=== PATIENT | male | born 1990 | race Caucasian/White ===

== ENCOUNTER 2017-04-05 05:48 | Day surgery (SDC) | payer OTHER ==
[~2017-04-05] VITALS: Ht 185.4 cm; Wt 81.6 kg
[~2017-04-05 05:48] MED LIST: AUGM875T28 PO; IBUP-1114 PO; NORC1TAB4 PO; PROAAER10 INH
[2017-04-05] MEDS ORDERED: ROPIvacaine 0.5% 30 ML INJECTION (J2795) ONE (05:49)
[2017-04-05] MEDS ORDERED: dexameTHASONE 10 MG/1 ML VIAL PRES.FREE (J1100) ONE (05:49)
[2017-04-05] MEDS ORDERED: LR 1,000 ML IV ONE (06:00)
[2017-04-05] MEDS ORDERED: MIDAZOLAM INJ 2 MG/2 ML VIAL (J2250) As Ordered ONE ×2 (06:56→07:09)
[2017-04-05] MEDS ORDERED: fentaNYL 100 MCG/2 ML INJECTION (J3010) As Ordered ONE (06:56)
[2017-04-05] MEDS ORDERED: ceFAZolin 1GM INJ (J0690) As Ordered ONE (07:20)
[2017-04-05] MEDS ORDERED: MIDAZOLAM INJ 2 MG/2 ML VIAL (J2250) IV ONE (07:30)
[2017-04-05] MEDS ORDERED: fentaNYL 100 MCG/2 ML INJECTION (J3010) IV ONE (07:30)
[2017-04-05] MEDS ORDERED: ceFAZolin SOD 1 GM in D5W MINI-BAG PLUS 50 ML IV ONE (07:30)
[2017-04-05] MEDS ORDERED: PROPOFOL 200 MG/20 ML VIAL As Ordered ONE (08:25)
[2017-04-05] MEDS ORDERED: LIDOCAINE 2% INJ 100 MG/5 ML SDV (FOR ANES.) As Ordered ONE (08:25)
[2017-04-05] MEDS ORDERED: ASPI325T24 PO (09:58)
[2017-04-05] MEDS ORDERED: NORCO, ANEXSIA 5/325MG TABLET (HYDROcodone/ACETAMINOPHEN) PO PRN (10:00)
[2017-04-05] MEDS ORDERED: LR 1,000 ML IV SCH (10:00)
[2017-04-05] MEDS ORDERED: ONDANSETRON 4MG/2ML VIAL (J2405) IV PRN (10:00)
[2017-04-05] MEDS ORDERED: fentaNYL 100 MCG/2 ML INJECTION (J3010) IV PRN (10:00)
[2017-04-05] MEDS ORDERED: PERCOCET PO (10:02)
[2017-04-05 14:50] VITALS: BP 137/71
--- NOTE | 2017-04-06 20:56 | RO ---
DATE OF PROCEDURE: 04/05/2017 PREOPERATIVE DIAGNOSIS: Left Achilles tendon rupture. POSTOPERATIVE DIAGNOSIS: Left Achilles tendon rupture. PROCEDURE: Left Achilles tendon repair. SURGEON: Avelina Tomas MD SEAM CLOSER: None ANESTHESIA: Spinal with popliteal block. ESTIMATED BLOOD LOSS: Minimal. IMPLANTS: Four #2 FiberWire sutures. COMPLICATIONS: None. CONDITION: Stable to recoveru. IMPLANTS: Four #2 FiberWire Sutures. INDICATIONS: Mr. Ingram is a 27-year-old male who was playing softball when he ruptured his Achilles tendon. The patient was seen in the office preoperatively , where options for treatment, including conservative management, were discussed with the patient in detail. The patient elected to proceed with surgical management of his Achilles tendon rupture. Risks and benefits including infection, wound healing issues, deep venous thrombosis (DVT), pulmonary embolism (PE), infection were all discussed with the patient in detail. The patient understands these risks and wishes to proceed with surgery. DESCRIPTION OF PROCEDURE: The patient was met in the preoperative holding area where his left lower extremity was marked as the correct operative site. Informed consent was reviewed. He then underwent a popliteal block by the anesthesiologist. Following this, he was taken to the operating room theater. At this point, spinal anesthetic was given by anesthesia. A well-padded tourniquet was placed on the left thigh. The patient was then placed in prone position on the operating room table. All of his bony prominences were well padded. Both legs were prepped out, and sterile drapes were applied. An official time-out was held where the correct patient and operative site were once again confirmed. The patient received antibiotics prior to incision. The leg was exsanguinated and tourniquet was inflated to 250mmHg. A longitudinal incision was made just medial to the midline in the area of the palpable defect. Careful dissection was carried out through the skin and subcutaneous tissues. Care was taken not to create subcutaneous flaps. The peritenon was exposed, and sharp dissection through the peritenon was performed to expose the ruptured Achilles tendon. All dissection remained at this point within the Achilles tendon sheath itself. Complete rupture of the Achilles tendon was noted. The plantaris tendon was noted to be intact. An Allis clamp was used to gently mobilize the proximal remnant. A finger was used to release any early adhesions. Gentle traction on the remnant allowed for exposure of the healthier tendon more proximally. The sural nerve was identified laterally, and care was taken to protect it throughout the case. At this point, a #2 FiberWire was passed through the proximal aspect of the tendon in a locking Krackow stitch. The distal aspect of the tendon was then exposed. Again, care was taken to protect the sural nerve. Similarly, a #2 FiberWire was passed in a locking Krackow stitch through the distal aspect of the tendon. The FiberWire sutures were then tied down with care to approximate similar tension to the contralateral side. At this point, a #2 FiberWire suture was placed through the proximal Achilles tendon remnant. A Peridot weave was created. A second #2 FiberWire suture was placed in the distal remnant and, similarly, a Cherelle weave was again created. With the ankle in proper equinus, the Cherelle weave was then tied down under appropriate tension. Again, tension was compared to the contralateral side and found to be adequate. The Figueroa test was now grossly negative. The wound at this point was grossly irrigated with copious quantities of normal saline. Closure was then performed, reapproximating the peritenon with #3-0 Vicryl. Following this, the subcutaneous tissues were closed using #3-0 Vicryl and the skin was closed using #3-0 nylon. The wound was dressed with Adaptic, sterile dressings, and sterile Webril. The patient was placed into a well-padded splint in equinus position. He was transferred into the recovery room in stable condition. POSTOPERATIVE PLAN: The patient will be nonweightbearing in his splint on the operative side. He will keep his extremity elevated 80% of the day to work on wound healing. He will followup in 14 days for suture removal. He will overall be nonweightbearing for 4 weeks. He will take aspirin 325 mg by mouth twice a day starting tonight for DVT prophylaxis. KERA
== END 2017-04-05 14:58 | disposition home or self-care (01) ==
LOC: M SDC 05:48
PROVIDERS: ATTEND Orthopaedic Surgery
DX: S86.012A Strain of left Achilles tendon, initial encounter (principal); Y93.64 Activity, baseball; Y92.89 Other specified places as the place of occurrence of the external cause; Y99.8 Other external cause status; X58.XXXA Exposure to other specified factors, initial encounter; J45.909 Unspecified asthma, uncomplicated
CPT/HCPCS: 27650; 64450; J0690; J1100; J2250; J2795; J3010

== ENCOUNTER 2020-08-10 01:50 | Emergency (ER) | payer OTHER, BC ==
[~2020-08-10] VITALS: Ht 185.4 cm; Wt 81.8 kg
[~2020-08-10 01:50] MED LIST changes: +ASPI-255 PO; -NORC1TAB4 PO; +NORC1TAB7 PO; +PERCOCET PO
[2020-08-10 02:12] LABS: ABG BASE EXCESS -4.1 (-2.0-2.0); ABG HCO3 20.5 MEQ/L (22.0-26.0); ABG O2 SATURATION 98.7 % (95.0-99.0); ABG PARTIAL PRESSURE CO2 36.1 mmHg (35.0-45.0); ABG PARTIAL PRESSURE O2 134.8 mmHg (75.0-100.0); ABG STANDARD HCO3 21.1 MEQ/L (22.0-26.0); ABG TOTAL CO2 21.6 MEQ/L (22.0-29.0); ABG pH (ARTERIAL) 7.372 UNITS (7.350-7.450)
[2020-08-10 02:17] VITALS: O2SAT 100
[2020-08-10 02:29] LABS: BASO % 0.7 % (0.0-1.0); EOS # 0.4 10^3/uL (0.0-0.5); EOS % 6.5 % (0.0-3.0); HEMATOCRIT 40.4 % (42.0-52.0); LYMPH # 2.1 10^3/uL (1.5-5.0); LYMPH % 36.5 % (24.0-44.0); MEAN CORPUSCULAR HGB CONC 32.2 g/dl (32.0-36.5); MEAN CORPUSCULAR VOLUME 93.1 fl (80.0-96.0); MONO # 0.6 10^3/uL (0.0-0.8); MONO % 10.2 % (0.0-5.0); NEUTROPHILS # 2.6 10^3/uL (1.5-8.5); NEUTROPHILS % 45.9 % (36.0-66.0); PLATELET COUNT, AUTOMATED 219 10^3/uL (150-450); RED BLOOD COUNT 4.34 10^6/uL (4.30-6.10); WHITE BLOOD COUNT 5.7 10^3/uL (4.0-10.0)
[2020-08-10] MEDS ORDERED: IPRATROPIUM 0.5MG/ALBUTEROL 2.5MG INH SOL UD 3ML (DUONEB) As Ordered ONE (02:34)
[2020-08-10] MEDS ORDERED: IPRATROPIUM 0.5MG/ALBUTEROL 2.5MG INH SOL UD 3ML (DUONEB) NEB ONE (02:45)
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
[2020-08-10 03:12] LABS: ALT/SGPT 17 U/L (12-78); BILIRUBIN,DIRECT 0.2 MG/DL (0.0-0.2); BILIRUBIN,TOTAL 0.5 MG/DL (0.2-1.0); BLOOD UREA NITROGEN 23 MG/DL (7-18); CALCIUM LEVEL 8.8 MG/DL (8.5-10.1); CARBON DIOXIDE LEVEL 24 MEQ/L (21-32); CHLORIDE LEVEL 108 MEQ/L (98-107); CK-MB VALUE MASS 1.7 NG/ML (<3.6); CPK CREATINE PHOSPHOKINASE 166 U/L (39-308); CREATININE FOR GFR 0.82 MG/DL (0.70-1.30); FREE T4 1.14 NG/DL (0.76-1.46); GLOMERULAR FILTRATION RATE > 60.0 (>60); GLUCOSE, FASTING 88 MG/DL (70-100); MB/CK RELATIVE INDEX 1.02 (< OR =4); POTASSIUM SERUM 3.9 MEQ/L (3.5-5.1); SODIUM LEVEL 139 MEQ/L (136-145); THYROID STIMULATING HORMONE 0.924 uIU/ML (0.358-3.740); TROPONIN I < 0.02 NG/ML (< 0.10)
[2020-08-10] MEDS ORDERED: VENTAER INH (03:57)
[2020-08-10 05:15] VITALS: BP 145/88
--- NOTE | 2020-08-11 07:58 | ECGEPIP ---
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
== END 2020-08-10 05:38 | disposition home or self-care (01) ==
LOC: M ED 01:51
DX: J70.5 Respiratory conditions due to smoke inhalation (principal); I44.0 Atrioventricular block, first degree; X08.8XXA Exposure to other specified smoke, fire and flames, initial encounter; Y92.89 Other specified places as the place of occurrence of the external cause; Y93.9 Activity, unspecified; Y99.0 Civilian activity done for income or pay; J45.909 Unspecified asthma, uncomplicated

== ENCOUNTER 2022-06-16 00:13 | Emergency (ER) | payer BC, OTHER ==
[~2022-06-16] VITALS: Ht 185.4 cm; Wt 81.8 kg
[~2022-06-16 00:13] MED LIST changes: +VENTAER INH
[2022-06-16 02:21] VITALS: BP 138/88
== END 2022-06-16 02:22 | disposition home or self-care (01) ==
LOC: M ED 00:13
DX: S62.667A Nondisplaced fracture of distal phalanx of left little finger, initial encounter for closed fracture (principal); W50.0XXA Accidental hit or strike by another person, initial encounter; Y99.0 Civilian activity done for income or pay; J45.909 Unspecified asthma, uncomplicated; Z79.51 Long term (current) use of inhaled steroids

== ENCOUNTER → 2022-07-14 | Outpatient (CLI) | payer OTHER | LOC: M SOG 13:44 | PROVIDERS: ATTEND Physician Assistant | DX: M79.645 Pain in left finger(s) (principal); S62.667D Nondisplaced fracture of distal phalanx of left little finger, subsequent encounter for fracture with routine healing; W50.0XXD Accidental hit or strike by another person, subsequent encounter; Y99.0 Civilian activity done for income or pay ==

== ENCOUNTER → 2023-09-15 | Outpatient (REF) | payer OTHER ==
[2023-09-15 12:52] LABS: BASO % 0.8 % (0.0-1.0); EOS # 0.3 10^3/uL (0.0-0.5); HEMATOCRIT 45.4 % (42.0-52.0); HEMOGLOBIN 15.2 g/dl (13.5-17.5); LYMPH # 1.8 10^3/uL (1.5-5.0); LYMPH % 36.3 % (24.0-44.0); MEAN CORPUSCULAR HEMOGLOBIN 30.8 pg (27.0-33.0); MEAN CORPUSCULAR HGB CONC 33.5 g/dl (32.0-36.5); MEAN CORPUSCULAR VOLUME 92.1 fl (80.0-96.0); MONO # 0.4 10^3/uL (0.0-0.8); MONO % 8.7 % (2.0-8.0); NEUTROPHILS # 2.3 10^3/uL (1.5-8.5); PLATELET COUNT, AUTOMATED 231 10^3/uL (150-450); RED BLOOD COUNT 4.93 10^6/uL (4.30-6.10); WHITE BLOOD COUNT 4.8 10^3/uL (4.0-10.0)
[2023-09-15 12:56] LABS: ALKALINE PHOSPHATASE 40 U/L (46-116); ALT/SGPT 18 U/L (7.0-40); AST/SGOT 17 U/L (<34); BILIRUBIN,DIRECT 0.1 MG/DL (<0.4); BILIRUBIN,TOTAL 0.4 MG/DL (0.3-1.2); BLOOD UREA NITROGEN 22 MG/DL (9-23); CALCIUM LEVEL 9.3 MG/DL (8.5-10.1); CARBON DIOXIDE LEVEL 29 MMOL/L (20-31); CHLORIDE LEVEL 111 MMOL/L (98-107); CREATININE FOR GFR 0.88 MG/DL (0.70-1.30); GLOMERULAR FILTRATION RATE > 60.0 (>60); GLUCOSE, FASTING 87 MG/DL (60-100); SODIUM LEVEL 143 MMOL/L (136-145); TOTAL PROTEIN 6.8 G/DL (5.7-8.2)
[2023-09-15 12:59] LABS: THYROID STIMULATING HORMONE 1.173 uIU/ML (0.55-4.78)
[2023-09-15 13:01] LABS: TOTAL 25(OH) VITAMIN D 38.2 NG/ML (20.0-100.0)
[2023-09-15 13:17] LABS: HEMOGLOBIN A1c 5.4 % (4.0-6.0)
== END ==
LOC: M LABDRWAD 12:21
PROVIDERS: ATTEND Physician Assistant
DX: Z13.29 Encounter for screening for other suspected endocrine disorder (principal); Z13.220 Encounter for screening for lipoid disorders

== ENCOUNTER → 2023-09-20 | Outpatient (REF) | payer BC | LOC: M LABSMT 08:09 | PROVIDERS: ATTEND Urology | DX: Z30.2 Encounter for sterilization (principal) ==

== ENCOUNTER → 2025-03-25 | Outpatient (REF) | payer OTHER | LOC: M LAB REF 16:45 | PROVIDERS: ATTEND Physician Assistant | DX: J02.9 Acute pharyngitis, unspecified (principal) ==